=== PATIENT | female | born 1990 | race Caucasian/White ===

== ENCOUNTER → 2016-08-31 | Outpatient (CLI) | payer BC | END | disposition home or self-care (01) | LOC: LABWHC1 10:31 | PROVIDERS: ATTEND Internal Medicine Endocrinology, Diabetes & Metabolism | DX: E03.9 Hypothyroidism, unspecified (principal); E04.1 Nontoxic single thyroid nodule | CPT/HCPCS: 36415; 84443 ==

== ENCOUNTER → 2016-09-17 | Outpatient (CLI) | payer BC ==
--- NOTE | 2016-09-17 15:44 | US ---
EXAMINATION TYPE: US thyroid st tissue head/neck DATE OF EXAM: 09/17/2016 3:01 PM COMPARISON: No previous CLINICAL HISTORY: E04.2 GOITER. Thyroid nodules MEASUREMENTS: GLAND SIZE: Right Lobe: 5.0 x 1.3 x 1.7cm Homogeneous Left Lobe: 4.6 x 1.5 x 1.6 Homogeneous Isthmus Thickness: 0.3cm NODULES RIGHT: # of nodules measured on right: 0 LEFT: # of nodules measured on left: 0 ISTHMUS: # of nodules measured within isthmus: 0 IMPRESSION: No distinct nodule seen on today's exam; bilateral neck scanned, no abnormal lymphadeno sawyer noted.
== END ==
LOC: RADUSWWP 14:41
PROVIDERS: ATTEND Internal Medicine Endocrinology, Diabetes & Metabolism
DX: E04.2 Nontoxic multinodular goiter (principal)
CPT/HCPCS: 76536

== ENCOUNTER → 2017-08-10 | Outpatient (CLI) | payer BC ==
--- NOTE | 2017-08-10 17:28 | XR ---
EXAMINATION TYPE: XR lumbosacral spine min 4V DATE OF EXAM: 08/10/2017 COMPARISON: 01/24/2012 HISTORY: Lumbago TECHNIQUE: Five-view lumbar spine FINDINGS: There are 4 lumbar-type vertebral bodies. There appears to be sacralization of L5. No spond ylolysis is evident. Vertebral body heights are preserved. Some disc space narrowing at L2-L3 mid lum bar level may be present posteriorly. Exam is stable from the comparison. IMPRESSION: 1. 4 lumbar-type vertebral bodies. Some posterior mid lumbar spine disc space narrowing may be prese nt.
== END | disposition home or self-care (01) ==
LOC: RADXRMAIN 12:12
PROVIDERS: ATTEND Internal Medicine
DX: M54.41 Lumbago with sciatica, right side (principal)
CPT/HCPCS: 72110

== ENCOUNTER → 2018-06-14 | Outpatient (CLI) | payer BC ==
--- NOTE | 2018-06-27 13:58 | EM ---
EVENT MONITOR Patient was monitored between the June 14, 2018 and June 25, 2018. The rhythm strip revealed sinus mechanism. There was an episode of atrial tachycardia. There was no evidence of significant bradycardia or malignant arrhythmia. KATHI / IJN: [id number] /
== END | disposition home or self-care (01) ==
LOC: RADECHMAIN 12:05
PROVIDERS: ATTEND Internal Medicine
DX: I47.1 Supraventricular tachycardia (principal)
CPT/HCPCS: 93270; 93271

== ENCOUNTER → 2021-09-21 | Outpatient (CLI) | payer BC ==
--- NOTE | 2021-09-21 10:12 | CT ---
EXAMINATION TYPE: CT sinus wo con DATE OF EXAM: 09/21/2021 COMPARISON: None available HISTORY: chronic sinusitis CT DLP: 673.70 mGycm. Automated Exposure Control for Dose Reduction was Utilized. TECHNIQUE: CT scan of the sinuses is performed without contrast, axial images are obtained, coronal r eformatted images are also reviewed. FINDINGS: Slightly deviated bony nasal septum convex to the right side with a tiny bone spur. Unremarkable midd le and inferior turbinates. No significant mucosal thickening of the nasal fossa bilaterally. Patent infundibulum and ostiomeatal complex bilaterally. Unremarkable maxillary sinuses, sphenoid sin us, ethmoid air cells and frontal sinus. Clear sphenoethmoidal recesses and frontoethmoidal recesses. Clear visualized mastoid air cells. Odontoid fixation, not completely included in the scan. Unremarka ble visualized portion of the brain and orbits. IMPRESSION: No evidence of acute or chronic sinusitis. Incidental findings as described above.
== END | disposition home or self-care (01) ==
LOC: RADCTMAIN 09:42
PROVIDERS: ATTEND Otolaryngology
DX: J34.2 Deviated nasal septum (principal)
CPT/HCPCS: 70486

== ENCOUNTER → 2023-08-03 | Outpatient (CLI) | payer BC ==
--- NOTE | 2023-08-05 12:58 | MM ---
Reason for Exam: Screening (asymptomatic). Baseline mammogram. Patient History: Menarche at age 11. First Full-Term at age 22. Patient has history of breast feeding. Paternal grandmother (Dana) had breast cancer, age 48. Last menstrual period: 07/14/2023 Risk Values: Delmis 5 year model risk: 0.3%. NCI Lifetime model risk: 9.2%. Prior Study Comparison: Patient's first Mammogram. Tissue Density: The breast tissue is heterogeneously dense. This may lower the sensitivity of mammography. Findings: Analyzed By CAD. There is no suspicious group of microcalcifications or new suspicious mass in either breast. Overall Assessment: Benign, BI-RAD 2 Management: Screening Mammogram of both breasts in 1 year. . Patient should continue monthly self-breast exams. A clinical breast exam by your physician is recommended on an annual basis. This exam should not preclude additional follow-up of suspicious palpable abnormalities. Note on Delmis scores and lifetime risk: 1. A Delmis score greater than 3% is considered moderate risk. If this is the case, consider specialist referral to assess eligibility for a risk reducing agent. 2. If overall lifetime risk for the development of breast cancer is 20% or higher, the patient may qualify for future screening with alternating mammogram and breast MRI. Electronically signed and approved by: Georgi Vela M.D. Radiologis
== END | disposition home or self-care (01) ==
LOC: RADMAMWWP 13:21
PROVIDERS: ATTEND Obstetrics & Gynecology
DX: Z12.31 Encounter for screening mammogram for malignant neoplasm of breast (principal); Z80.3 Family history of malignant neoplasm of breast
CPT/HCPCS: 77063; 77067

== ENCOUNTER → 2024-10-30 | Outpatient (CLI) | payer BC ==
--- NOTE | 2024-10-30 10:34 | MM ---
Reason for Exam: Screening (asymptomatic). Last mammogram was performed 1 year(s) and 3 month(s) ago. Patient History: Menarche at age 11. First Full-Term at age 22. Patient has history of breast feeding. Paternal grandmother (Dana) had breast cancer, age 48. Risk Values: Delmis 5 year model risk: 0.3%. NCI Lifetime model risk: 9.2%. Prior Study Comparison: 08/03/2023 Bilateral MG 3D screening mammo w/cad, [facility]. Tissue Density: The breasts are heterogeneously dense, which may obscure small masses. Findings: Analyzed By CAD. Benign-appearing bilateral axillary lymph nodes are redemonstrated. There is no suspicious group of microcalcifications or new suspicious mass in either breast. Overall Assessment: Negative, BI-RAD 1 Management: Screening Mammogram of both breasts at age 38. Some advise annual ultrasound surveillance in patients with background dense tissue. Patient should continue monthly self-breast exams. A clinical breast exam by your physician is recommended on an annual basis. This exam should not preclude additional follow-up of suspicious palpable abnormalities. Note on Delmis scores and lifetime risk: 1. A Delmis score greater than 3% is considered moderate risk. If this is the case, consider specialist referral to assess eligibility for a risk reducing agent. 2. If overall lifetime risk for the development of breast cancer is 20% or higher, the patient may qualify for future screening with alternating mammogram and breast MRI. [facility], , 10/30/2024 10:31 AM. Electronically signed and approved by: Alex Villavicencio M.D.
== END | disposition home or self-care (01) ==
LOC: RADMAMWWP 09:07
PROVIDERS: ATTEND Obstetrics & Gynecology
DX: Z12.31 Encounter for screening mammogram for malignant neoplasm of breast (principal); R92.333 Mammographic heterogeneous density, bilateral breasts; Z80.3 Family history of malignant neoplasm of breast
CPT/HCPCS: 77063; 77067